=== PATIENT | female | born 1950 | race Caucasian/White ===

== ENCOUNTER 2017-04-30 22:05 | Inpatient (IN) | payer MEDICAID ==
[~2017-04-30] VITALS: Ht 154.9 cm; Wt 68.0 kg
[2017-04-30 23:17] LABS: BASOPHIL % 0.4 % (0-2); PLATELET COUNT 309 x10^3mcL (130-400); RED CELL DISTRIBUTION WIDTH 13.6 % (11.5-14.5)
[2017-04-30 23:20] LABS: UA SPECIFIC GRAVITY 1.005 (1.005-1.035); microscopic required? YES
[2017-04-30 23:21] LABS: urine erythrocyte 2+ (NEGATIVE)
[2017-04-30 23:28] LABS: CALCIUM 9.3 mg/dL (8.5-10.1); CARBON DIOXIDE 25.8 mmol/L (21-32); CREATININE SERUM 1.1 mg/dL (0.6-1.0); POTASSIUM SERUM 3.6 mmol/L (3.5-5.1)
[2017-04-30 23:39] LABS: ALBUMIN 3.6 g/dL (3.4-5.0); BILIRUBIN TOTAL 0.24 mg/dL (0.20-1.00); T4(THYROXINE) 8.2 ug/dL (4.7-13.3); TOTAL PROTEIN, SERUM 8.1 g/dL (6.4-8.2)
[2017-05-01 01:24] VITALS: BP 142/64
[2017-05-01 02:14] LABS: MAGNESIUM 1.8 mg/dL (1.8-2.4); PHOSPHOROUS 3.2 mg/dL (2.5-4.9)
[2017-05-01 07:10] VITALS: BP 113/50; BP 127/69
[2017-05-01 08:08] LABS: CALCIUM 8.4 mg/dL (8.5-10.1); CARBON DIOXIDE 24.6 mmol/L (21-32); CHLORIDE SERUM 107 mmol/L (98-107); CREATININE SERUM 0.8 mg/dL (0.6-1.0); GFR1 > 60 mL/min; GLUCOSE SERUM 282 mg/dL (74-106); POTASSIUM SERUM 3.4 mmol/L (3.5-5.1); SODIUM SERUM 140 mmol/L (136-145)
[2017-05-01 09:46] VITALS: BP 129/65
[2017-05-01 15:16] VITALS: BP 112/55
[2017-05-01 20:54] VITALS: BP 114/71
[2017-05-02 05:56] VITALS: BP 133/70
[2017-05-02 06:19] LABS: BASOPHIL % 0.5 % (0-2); PLATELET COUNT 276 x10^3mcL (130-400); RED CELL DISTRIBUTION WIDTH 13.8 % (11.5-14.5)
[2017-05-02 07:01] LABS: CALCIUM 9.4 mg/dL (8.5-10.1); CARBON DIOXIDE 28.9 mmol/L (21-32); CHLORIDE SERUM 106 mmol/L (98-107); CREATININE SERUM 0.8 mg/dL (0.6-1.0); GFR1 > 60 mL/min; GLUCOSE SERUM 159 mg/dL (74-106); MAGNESIUM 1.7 mg/dL (1.8-2.4); PHOSPHOROUS 3.3 mg/dL (2.5-4.9); POTASSIUM SERUM 4.2 mmol/L (3.5-5.1); SODIUM SERUM 139 mmol/L (136-145)
[2017-05-02 09:30] VITALS: BP 109/63
[2017-05-02] MEDS ORDERED: LIPI10 PO (14:00)
[2017-05-02] MEDS ORDERED: METOPROLOL TART25 M1 PO (14:01)
[2017-05-02] MEDS ORDERED: ECO81 PO (14:01)
[2017-05-02] MEDS ORDERED: ZES5 PO (14:01)
[2017-05-02] MEDS ORDERED: METFORMIN HCL1000 MG PO (14:02)
[2017-05-02] MEDS ORDERED: BACTRIM1 TAB PO (14:07)
[2017-05-02 14:10] VITALS: BP 158/67
[2017-05-02 14:44] VITALS: BP 158/67
== END 2017-05-02 16:05 | disposition home or self-care (01) | DRG 203 ==
LOC: ED 22:05 → DU 23:43
PROVIDERS: Emergency Medicine; ADMIT Family Medicine
DX: M94.0 Chondrocostal junction syndrome [Tietze] (principal); N17.0 Acute kidney failure with tubular necrosis; H81.10 Benign paroxysmal vertigo, unspecified ear; E11.65 Type 2 diabetes mellitus with hyperglycemia; N39.0 Urinary tract infection, site not specified; R31.29 Other microscopic hematuria; E87.6 Hypokalemia; E83.42 Hypomagnesemia; E78.5 Hyperlipidemia, unspecified; E03.9 Hypothyroidism, unspecified; Z91.128 Patient's intentional underdosing of medication regimen for other reason
CPT/HCPCS: 82962; 83880; J0696; J1815; J7030; J8597; Q0092

== ENCOUNTER 2018-01-20 13:15 | Emergency (ER) | payer SELFPAY ==
[~2018-01-20] VITALS: Ht 157.5 cm; Wt 73.7 kg
[~2018-01-20 13:15] MED LIST: BACTRIM1 TAB PO; ECO81 PO; LIPI10 PO; METFORMIN HCL1000 MG PO; METOPROLOL TART25 M1 PO; ZES5 PO
[2018-01-20 13:52] VITALS: Ht 157.5 cm; Wt 73.7 kg
[2018-01-20 14:49] LABS: PLATELET COUNT 339 x10^3mcL (130-400); RED CELL DISTRIBUTION WIDTH 12.4 % (11.5-14.5)
[2018-01-20 14:57] LABS: CALCIUM 9.5 mg/dL (8.5-10.1); CARBON DIOXIDE 32.9 mmol/L (21-32); CREATININE SERUM 1.2 mg/dL (0.6-1.0); POTASSIUM SERUM 3.1 mmol/L (3.5-5.1)
[2018-01-20 15:01] LABS: ALBUMIN 3.5 g/dL (3.4-5.0); BILIRUBIN TOTAL 0.4 mg/dL (0.20-1.00)
[2018-01-20 15:05] LABS: TOTAL PROTEIN, SERUM 8.8 g/dL (6.4-8.2)
[2018-01-20 15:17] LABS: UA SPECIFIC GRAVITY 1.015 (1.005-1.035); microscopic required? YES; urine erythrocyte 3+ (NEGATIVE)
[2018-01-20 18:49] VITALS: BP 132/71
== END 2018-01-20 18:49 | disposition home or self-care (01) ==
LOC: ED 13:15
PROVIDERS: Emergency Medicine
DX: N39.0 Urinary tract infection, site not specified (principal); E87.6 Hypokalemia; E27.9 Disorder of adrenal gland, unspecified; E11.9 Type 2 diabetes mellitus without complications
CPT/HCPCS: 83880; J0696; J2405; J7030; Q0092

== ENCOUNTER 2018-01-23 20:13 | Emergency (ER) | payer SELFPAY ==
[~2018-01-23] VITALS: Ht 160 cm; Wt 73.0 kg
[2018-01-23 21:12] LABS: BASOPHIL % 0.7 % (0-2); RED CELL DISTRIBUTION WIDTH 12.4 % (11.5-14.5)
[2018-01-23 21:15] LABS: CALCIUM 10.2 mg/dL (8.5-10.1); CREATININE SERUM 1.2 mg/dL (0.6-1.0); POTASSIUM SERUM 3.9 mmol/L (3.5-5.1)
[2018-01-23 21:17] LABS: PLATELET COUNT 403 x10^3mcL (130-400)
[2018-01-23 21:19] LABS: ALBUMIN 3.4 g/dL (3.4-5.0); BILIRUBIN TOTAL 0.1 mg/dL (0.20-1.00)
[2018-01-23 21:21] LABS: TOTAL PROTEIN, SERUM 8.6 g/dL (6.4-8.2)
[2018-01-23 21:29] LABS: microscopic required? YES; urine erythrocyte 3+ (NEGATIVE)
[2018-01-24 01:26] VITALS: BP 110/72
== END 2018-01-24 01:26 | disposition home or self-care (01) ==
LOC: ED 20:13
PROVIDERS: Emergency Medicine
DX: N39.0 Urinary tract infection, site not specified (principal); E27.9 Disorder of adrenal gland, unspecified; I10 Essential (primary) hypertension; E11.9 Type 2 diabetes mellitus without complications; E03.9 Hypothyroidism, unspecified
CPT/HCPCS: 83880; J0696; J7030; Q9966; Q9967